=== PATIENT | female | born 1995 | race Caucasian/White ===

== ENCOUNTER 2023-10-27 14:17 | Emergency (ER) | payer BC | END 2023-10-27 18:59 | disposition home or self-care (01) | LOC: ERS 14:17 | DX: O99.891 Other specified diseases and conditions complicating pregnancy (principal); R10.13 Epigastric pain; Z55.6 Problems related to health literacy; Z3A.01 Less than 8 weeks gestation of pregnancy | CPT/HCPCS: 36415; 76705; 76856; 80053; 83690; 84702; 85025; 93005 ==

== ENCOUNTER 2024-06-10 13:46 | Outpatient (CLI) | payer BC | END 2024-06-10 13:47 | disposition home or self-care (01) | LOC: BICULT 13:46 | PROVIDERS: ATTEND Nurse Practitioner Women's Health | DX: N63.13 Unspecified lump in the right breast, lower outer quadrant (principal) ==